=== PATIENT | female | born 1940 | race American Indian/Alaskan Native ===

== ENCOUNTER 2018-09-17 16:32 | Emergency (ER) | payer MEDICARE ==
--- NOTE | 2018-09-17 18:32 | Emergency Department Report ---
HPI - General Chief Complaint: Altered Mental Status Time Seen by Provider: 09/17/18 17:19 - HPI HPI: Room 23 The patient is an 78-year-old female presenting with a chief complaint of weakness. The patient states yesterday while seated became diffusely weak. Patient admits to nausea but denies vomiting. Patient denies headache, chest pain or abdominal pain. Patient denies history of fever. The patient admits to a fall last night while carrying a heavy object stating she landed on her buttocks. Patient denies loss of consciousness or head injury Location: Diffuse body Duration: [See above] Quality: Weakness Severity: Moderate Modifying factors: [see above] Context: [see above] Mode of transportation: [not driving] ED Past Medical Hx - Past Medical History Hx Hypertension: Yes Hx Heart Attack/AMI: Yes Hx Diabetes: Yes Additional medical history: TIA - Surgical History Additional Surgical History: stent x 2, hysterectomy - Family History Family history: no significant - Social History Smoking Status: Never Smoker Substance Use Type: None - Medications Home Medications: Home Medications Medication Instructions Recorded Confirmed Last Taken Type Aspirin EC [Aspirin Enteric Coated 81 mg PO QDAY 12/14/15 12/14/15 Unknown History TAB] AtorvaSTATin [Lipitor] 80 mg PO DAILY 12/14/15 12/14/15 Unknown History ISOSORBIDE MONOnitrate [Imdur ER] 30 mg PO DAILY 12/14/15 12/14/15 Unknown History Lisinopril [Zestril TAB] 40 mg PO QDAY 12/14/15 12/14/15 Unknown History Ticagrelor [Brilinta] 90 mg PO BID 12/14/15 12/14/15 Unknown History ED Review of Systems ROS: Stated complaint: HYPERTENSION Other details as noted in HPI Constitutional: weakness Eyes: denies: eye pain ENT: denies: throat pain Respiratory: no symptoms reported Cardiovascular: denies: chest pain Endocrine: no symptoms reported Gastrointestinal: denies: abdominal pain Genitourinary: denies: dysuria Musculoskeletal: denies: back pain Neurological: denies: headache Physical Exam - Physical Exam Vital Signs: Vital Signs 09/17/18 17:01 Temperature 98.3 F Pulse Rate 71 Respiratory 18 Rate Blood Pressure 194/104 O2 Sat by Pulse 98 Oximetry Physical Exam: GENERAL: The patient is well-developed well-nourished female lying on stretcher not appearing to be in acute distress. [] HEENT: Normocephalic. Atraumatic. Extraocular motions are intact. Patient has moist mucous membranes. NECK: Supple. Trachea midline CHEST/LUNGS: Clear to auscultation. There is no respiratory distress noted. HEART/CARDIOVASCULAR: Regular. There is no tachycardia. There is no gallop rub or murmur. ABDOMEN: Abdomen is soft, nontender. Patient has normal bowel sounds. There is no abdominal distention. SKIN: There is no rash. There is no edema. There is no diaphoresis. NEURO: The patient is awake, alert, and oriented. The patient is cooperative. The patient has no focal neurologic deficits. The patient has normal speech. Cranial nerves II through XII grossly intact, no drift MUSCULOSKELETAL: There is no evidence of acute injury. ED Course Vital Signs 09/17/18 17:01 Temperature 98.3 F Pulse Rate 71 Respiratory 18 Rate Blood Pressure 194/104 O2 Sat by Pulse 98 Oximetry ED Medical Decision Making - Lab Data Result diagrams: 09/17/18 18:27 09/17/18 18:27 Laboratory Tests 09/17/18 09/17/18 09/17/18 18:15 18:27 18:27 WBC 9.4 RBC 4.45 Hgb 13.3 Hct 38.0 MCV 85 MCH 30 MCHC 35 H RDW 15.1 Plt Count 391 Lymph % (Auto) 7.5 L [place] % (Auto) 6.7 Eos % (Auto) 0.0 Baso % (Auto) 1.1 Lymph # 0.7 L [place] # 0.6 Eos # 0.0 Baso # 0.1 Seg Neutrophils % 84.7 H Seg Neutrophils # 8.0 H PT 14.9 INR 1.10 APTT 23.9 L Sodium Potassium Chloride Carbon Dioxide Anion Gap BUN Creatinine Estimated GFR BUN/Creatinine Ratio Glucose Calcium Total Bilirubin AST ALT Alkaline Phosphatase Total Creatine Kinase CK-MB (CK-2) CK-MB (CK-2) Rel Index Troponin T NT-Pro-B Natriuret Pep Total Protein Albumin Albumin/Globulin Ratio Lipase TSH Free T4 Urine Color Yellow Urine Turbidity Cloudy Urine pH 6.0 Ur Specific [place] 1.025 Urine Protein 30 mg/dl Urine Glucose (UA) >=500 Urine Ketones 20 Urine Blood Sm Urine Nitrite Pos Urine Bilirubin Neg Urine Urobilinogen < 2.0 Ur Leukocyte Esterase Sm Urine WBC (Auto) 63.0 H Urine RBC (Auto) 3.0 U Epithel Cells (Auto) 11.0 Urine Bacteria (Auto) 1+ Urine WBC Clumps 2+ Urine Mucus Few 09/17/18 09/17/18 18:27 18:27 WBC RBC Hgb Hct MCV MCH MCHC RDW Plt Count Lymph % (Auto) [place] % (Auto) Eos % (Auto) Baso % (Auto) Lymph # [place] # Eos # Baso # Seg Neutrophils % Seg Neutrophils # PT INR APTT Sodium 140 Potassium 3.6 Chloride 98.6 Carbon Dioxide 23 Anion Gap 22 BUN 15 Creatinine 0.8 Estimated GFR > 60 BUN/Creatinine Ratio 19 Glucose 396 H Calcium 9.4 Total Bilirubin 0.50 AST 10 ALT 12 Alkaline Phosphatase 131 H Total Creatine Kinase 68 CK-MB (CK-2) 2.7 CK-MB (CK-2) Rel Index 3.9 Troponin T < 0.010 NT-Pro-B Natriuret Pep 88.55 Total Protein 7.2 Albumin 3.6 L Albumin/Globulin Ratio 1.0 Lipase 16 TSH 0.865 Free T4 1.03 Urine Color Urine Turbidity Urine pH Ur Specific [place] Urine Protein Urine Glucose (UA) Urine Ketones Urine Blood Urine Nitrite Urine Bilirubin Urine Urobilinogen Ur Leukocyte Esterase Urine WBC (Auto) Urine RBC (Auto) U Epithel Cells (Auto) Urine Bacteria (Auto) Urine WBC Clumps Urine Mucus - EKG Data -: EKG Interpreted by Ut EKG shows normal: sinus rhythm Rate: normal - EKG Data When compared to previous EKG there are: previous EKG unavailable Interpretation: other (no ischemic changes seen) - Radiology Data Radiology results: report reviewed (CT Head), image reviewed (CT Head) [address] [address] Cat Scan Report Signed Patient: JULIENNE GARCIA MR#: [id number] 7 : 1940 Acct:[id number] Age/Sex: 78 / F ADM Date: 09/17/18 Loc: ED Attending Dr: Ordering Physician: REANNA BURNS MD Date of Service: 09/17/18 Procedure(s): CT head/brain wo con Accession Number(s): [id number] cc: REANNA BURNS MD PROCEDURE: CT head without contrast. TECHNIQUE: Computerized tomography of the head was performed without contrast material. CT DOSE LENGTH PRODUCT: 805.4 mGycm HISTORY: Weakness, nausea. COMPARISONS: None. FINDINGS: The ventricles are normal in size. There is a fairly large area of diminished attenuation involving the left cerebellar hemisphere. This is not sharply defined. It is consistent with a subacute stroke. Clinical correlation is recommended. This could also be confirmed by MRI scanning. There are no mass lesions. There is no intracranial hemorrhage. The calvarium appears intact. The mastoid air cells and paranasal sinuses are clear as far as visualized. IMPRESSION: Probable large subacute stroke in the left cerebellar hemisphere. This document is electronically signed by Manpreet Aranda MD., Sep 17 2018 09:41:31 PM ET Transcribed By: MRM Dictated By: MANPREET ARANDA MD Electronically Authenticated By: MANPREET ARANDA MD Signed Date/Time: 09/17/182042 DD/ 99 TD/TT: 09/17/182004 - Differential Diagnosis symptomatic anemia, hyponatremia, dehydration, CHF, UTI, ACS Critical care attestation.: If time is entered above; I have spent that time in minutes in the direct care of this critically ill patient, excluding procedure time. ED Disposition Clinical Impression: CVA (cerebral vascular accident), Hypertensive urgency Disposition: OP ADMIT IP TO THIS HOSP Is pt being admited?: Yes Does the pt Need Aspirin: Yes Condition: Stable Time of Disposition: 20:48 (hospitalist paged (Chiquita))
[2018-09-17] MEDS ORDERED: ZOFRAN IV ONE (18:35)
[2018-09-17 18:38] LABS: Bacteria,Urine 1+ /HPF (Negative); Bilirubin,Urine NEG (Negative); Blood,Urine SM (Negative); Color,Urine Yellow (Yellow); Mucus,Urine FEW /HPF; Urobilinogen,Urine < 2.0 mg/dL (<2.0)
[2018-09-17 18:42] LABS: Basophils # (Auto) 0.1 K/mm3 (0.0-0.1); Basophils % (Auto) 1.1 % (0.0-1.8); Hemoglobin 13.3 gm/dl (10.1-14.3); Lymphocytes # (Auto) 0.7 K/mm3 (1.2-5.4); Lymphocytes % (Auto) 7.5 % (13.4-35.0); Mean Corpuscular HGB Conc 35 % (30-34); Mean Corpuscular Volume 85 fl (79-97); Monocytes # (Auto) 0.6 K/mm3 (0.0-0.8); Monocytes % (Auto) 6.7 % (0.0-7.3); Platelet Count 391 K/mm3 (140-440); Red Blood Count 4.45 M/mm3 (3.65-5.03); Red Cell Distribution Width 15.1 % (13.2-15.2)
[2018-09-17 18:52] LABS: INR 1.1 (0.87-1.13); Partial Thromboplastin Time 23.9 Sec. (24.2-36.6)
[2018-09-17 19:26] LABS: Free T4 (Free Thyroxine) 1.03 ng/dL (0.76-1.46)
[2018-09-17 19:49] LABS: Creatine Kinase MB 2.7 ng/mL (0.0-4.0)
[2018-09-17 19:53] LABS: Alanine Aminotransferase 12 units/L (7-56); Albumin 3.6 g/dL (3.9-5); BUN/Creatinine Ratio 19; Blood Urea Nitrogen 15 mg/dL (7-17); Calcium 9.4 mg/dL (8.4-10.2); Hemolysis Index 4
[2018-09-17] MEDS ORDERED: CATAPRES PO ONE (19:57)
[2018-09-17] MEDS ORDERED: LEVAQUIN PO ONE (20:26)
--- NOTE | 2018-09-17 20:43 | Cat Scan Report ---
PROCEDURE: CT head without contrast. TECHNIQUE: Computerized tomography of the head was performed without contrast material. CT DOSE LENGTH PRODUCT: 805.4 mGycm HISTORY: Weakness, nausea. COMPARISONS: None. FINDINGS: The ventricles are normal in size. There is a fairly large area of diminished attenuation involving t he left cerebellar hemisphere. This is not sharply defined. It is consistent with a subacute stroke. Clinical correlation is recommended. This could also be confirmed by MRI scanning. There are no mass lesions. There is no intracranial hemorrhage. The calvarium appears intact. The mastoid air cells and paranasal sinuses are clear as far as visualized. IMPRESSION: Probable large subacute stroke in the left cerebellar hemisphere. This document is electronically signed by Manpreet Silverman MD., Sep 17 2018 09:41:31 PM ET
[2018-09-17] MEDS ORDERED: ASPIRIN PO ONE (20:49)
--- NOTE | 2018-09-17 21:06 | History and Physical Report ---
Medications and Allergies Allergies Allergy/AdvReac Type Severity Reaction Status Date / Time No Known Allergies Allergy Verified 09/17/18 17:01 Home Medications Medication Instructions Recorded Confirmed Last Taken Type Aspirin EC [Aspirin Enteric Coated 81 mg PO QDAY 12/14/15 12/14/15 Unknown His tory TAB] AtorvaSTATin [Lipitor] 80 mg PO DAILY 12/14/15 12/14/15 Unknown History ISOSORBIDE MONOnitrate [Imdur ER] 30 mg PO DAILY 12/14/15 12/14/15 Unknown History Lisinopril [Zestril TAB] 40 mg PO QDAY 12/14/15 12/14/15 Unknown History Ticagrelor [Brilinta] 90 mg PO BID 12/14/15 12/14/15 Unknown History Exam - Constitutional Vitals: Temp Pulse Resp BP Pulse Ox 98.3 F 79 20 178/87 98 09/17/18 17:01 09/17/18 20:44 09/17/18 20:44 09/17/18 20:44 09/17/18 19:50 Results - Labs CBC & Chem 7: 09/17/18 18:27 09/17/18 18:27 Labs: Laboratory Last Values WBC 9.4 K/mm3 (4.5-11.0) 09/17/18 18:27 RBC 4.45 M/mm3 (3.65-5.03) 09/17/18 18:27 Hgb 13.3 gm/dl (10.1-14.3) 09/17/18 18:27 Hct 38.0 % (30.3-42.9) 09/17/18 18:27 MCV 85 fl (79-97) 09/17/18 18:27 MCH 30 pg (28-32) 09/17/18 18:27 MCHC 35 % (30-34) H 09/17/18 18:27 RDW 15.1 % (13.2-15.2) 09/17/18 18:27 Plt Count 391 K/mm3 (140-440) 09/17/18 18:27 Lymph % (Auto) 7.5 % (13.4-35.0) L 09/17/18 18:27 [place] % (Auto) 6.7 % (0.0-7.3) 09/17/18 18:27 Eos % (Auto) 0.0 % (0.0-4.3) 09/17/18 18:27 Baso % (Auto) 1.1 % (0.0-1.8) 09/17/18 18:27 Lymph # 0.7 K/mm3 (1.2-5.4) L 09/17/18 18:27 [place] # 0.6 K/mm3 (0.0-0.8) 09/17/18 18: Eos # 0.0 K/mm3 (0.0-0.4) 09/17/18 18: Baso # 0.1 K/mm3 (0.0-0.1) 09/17/18 18: Seg Neutrophils % 84.7 % (40.0-70.0) H 09/17/18 18: Seg Neutrophils # 8.0 K/mm3 (1.8-7.7) H 09/17/18 18: PT 14.9 Sec. (12.2-14.9) 09/17/18 18: INR 1.10 (0.87-1.13) 09/17/18 18: APTT 23.9 Sec. (24.2-36.6) L 09/17/18 18:27 Sodium 140 mmol/L (137-145) 09/17/18 18: Potassium 3.6 mmol/L (3.6-5.0) 09/17/18 18: Chloride 98.6 mmol/L (98-107) 09/17/18 18: Carbon Dioxide 23 mmol/L (22-30) 09/17/18 18:27 22 mmol/L 09/17/18 18:27 BUN 15 mg/dL (7-17) 09/17/18 18:27 0.8 mg/dL (0.7-1.2) 09/17/18 18:27 Estimated GFR > 60 ml/min 09/17/18 18:27 19 % 09/17/18 18:27 Glucose 396 mg/dL (65-100) H 09/17/18 18:27 Calcium 9.4 mg/dL (8.4-10.2) 09/17/18 18:27 0.50 mg/dL (0.1-1.2) 09/17/18 18:27 AST 10 units/L (5-40) 09/17/18 18:27 ALT 12 units/L (7-56) 09/17/18 18:27 131 units/L (35-129) H 09/17/18 18:27 68 units/L (30-135) 09/17/18 18:27 CK-MB (CK-2) 2.7 ng/mL (0.0-4.0) 09/17/18 18:27 CK-MB (CK-2) Rel Index 3.9 (0-4) 09/17/18 18:27 < 0.010 ng/mL (0.00-0.029) 09/17/18 18: NT-Pro-B Natriuret Pep 88.55 pg/mL (0-900) 09/17/18 18:27 7.2 g/dL (6.3-8.2) 09/17/18 18:27 3.6 g/dL (3.9-5) L 09/17/18 18:27 1.0 % 09/17/18 18:27 16 units/L (13-60) 09/17/18 18:27 TSH 0.865 mlU/mL (0.270-4.200) 09/17/18 18:27 Free T4 1.03 ng/dL (0.76-1.46) 09/17/18 18:27 Yellow (Yellow) 09/17/18 18:15 Cloudy (Clear) 09/17/18 18:15 6.0 (5.0-7.0) 09/17/18 18:15 Ur Specific [place] 1.025 (1.003-1.030) 09/17/18 18:15 30 mg/dl mg/dL (Negative) 09/17/18 18:15 >=500 mg/dL (Negative) 09/17/18 18:15 20 mg/dL (Negative) 09/17/18 18:15 Sm (Negative) 09/17/18 18:15 Pos (Negative) 09/17/18 18:15 Neg (Negative) 09/17/18 18:15 < 2.0 mg/dL (<2.0) 09/17/18 18:15 Ur Leukocyte Esterase Sm (Negative) 09/17/18 18:15 63.0 /HPF (0.0-6.0) H 09/17/18 18:15 3.0 /HPF (0.0-6.0) 09/17/18 18:15 U Epithel Cells (Auto) 11.0 /HPF (0-13.0) 09/17/18 18:15 1+ /HPF (Negative) 09/17/18 18:15 2+ /HPF 09/17/18 18:15 Few /HPF 09/17/18 18:15
[2018-09-17] MEDS ORDERED: SODIUM CHLORIDE FLUSH SYRINGE 10 ML IV PRN ×2 (21:07)
[2018-09-17] MEDS ORDERED: ZOFRAN IV PRN ×2 (21:07)
[2018-09-17] MEDS ORDERED: MILK OF MAGNESIA PO PRN (21:07)
[2018-09-17] MEDS ORDERED: PHENERGAN PR PRN (21:07)
[2018-09-17] MEDS ORDERED: DULCOLAX PR PRN (21:07)
[2018-09-17] MEDS ORDERED: SENOKOT PO PRN (21:07)
[2018-09-17] MEDS ORDERED: REGLAN PO PRN (21:07)
[2018-09-17] MEDS ORDERED: TYLENOL PO PRN ×2 (21:07)
[2018-09-17] MEDS ORDERED: PEPCID IV SCH (22:00)
[2018-09-17] MEDS ORDERED: NACL 0.9% 1000 ML 1,000 ML IV SCH (22:00)
[2018-09-17] MEDS ORDERED: SODIUM CHLORIDE FLUSH SYRINGE 10 ML IV SCH (22:00)
[2018-09-17] MEDS ORDERED: ZOFRAN ONE (22:47)
[2018-09-17] MEDS ORDERED: PEPCID IV ONE (22:47)
[2018-09-17 22:55] VITALS: BP 187/73
[2018-09-18] MEDS ORDERED: ASPIRIN PO SCH (10:00)
== END 2018-09-17 23:34 | disposition admitted as inpatient to this hospital (09) ==
LOC: ED 16:32 → UNDOADMIN 21:07 → 4A 21:07 → ED 23:34
DX: I63.9 Cerebral infarction, unspecified (principal); I16.0 Hypertensive urgency; I10 Essential (primary) hypertension; I25.2 Old myocardial infarction; E11.9 Type 2 diabetes mellitus without complications; Z90.710 Acquired absence of both cervix and uterus
CPT/HCPCS: 36415; 70450; 80053; 81001; 82550; 82553; 83690; 83880; 84439; 84443; 84484; 85025; 85610; 85730; 87076; 87086; 87186; 93005; 93010; 96374; 96375; 96376; 99285; J2405

== ENCOUNTER 2019-02-25 11:43 | Emergency (ER) | payer MEDICARE ==
--- NOTE | 2019-02-25 14:10 | Event Note ---
ED Screening Note ED Screening Note: HPI: Family noticed right facial droop and dysarthria today. Last seen normal yesterday. This initial assessment/diagnostic orders/clinical plan/treatment(s) is/are subject to change based on patients health status, clinical progression and re- assessment by fellow clinical providers in the ED. Further treatment and workup at subsequent clinical providers discretion. Patient/guardian urged not to elope from the ED as their condition may be serious if not clinically assessed and managed. Initial orders include: laboratory and radiological.
--- NOTE | 2019-02-25 14:17 | XRay Report ---
CHEST 1 VIEW 02/25/2019 1:49 PM INDICATION / CLINICAL INFORMATION: tachycardia. COMPARISON: Chest x-ray 12/14/2015 FINDINGS: SUPPORT DEVICES: None. HEART / MEDIASTINUM: No significant abnormality. LUNGS / PLEURA: No significant pulmonary or pleural abnormality. No pneumothorax. ADDITIONAL FINDINGS: No significant additional findings. IMPRESSION: 1. No acute findings. Signer Name: Pascual Lamar MD Signed: 02/25/2019 2:13 PM Workstation Name: [id number]
[2019-02-25 14:35] LABS: Basophils # (Auto) 0.1 K/mm3 (0.0-0.1); Basophils % (Auto) 2.4 % (0.0-1.8); Eosinophils # (Auto) 0.1 K/mm3 (0.0-0.4); Eosinophils % (Auto) 1.4 % (0.0-4.3); Hematocrit 37.2 % (30.3-42.9); Hemoglobin 12.1 gm/dl (10.1-14.3); Lymphocytes # (Auto) 1.5 K/mm3 (1.2-5.4); Lymphocytes % (Auto) 27.8 % (13.4-35.0); Mean Corpuscular HGB Conc 32 % (30-34); Mean Corpuscular Volume 87 fl (79-97); Monocytes # (Auto) 0.4 K/mm3 (0.0-0.8); Monocytes % (Auto) 6.9 % (0.0-7.3); Platelet Count 287 K/mm3 (140-440); Red Blood Count 4.28 M/mm3 (3.65-5.03)
--- NOTE | 2019-02-25 14:40 | Emergency Department Report ---
ED Neuro Deficit HPI - General Chief Complaint: Neuro Symptoms/Deficit Stated Complaint: WEAKNESS Time Seen by Provider: 02/25/19 12:42 Source: patient Mode of arrival: Stretcher Limitations: No Limitations - History of Present Illness Initial Comments: FEMALE who is here without family members. She arrived prior to my arrival. It was determined that she was outside stroke window. As far as I can ascertain she woke up with a right facial paresis. She has a history of prior stroke apparently, diabetes and hypertension. She tells me that she fell twice today. She is uncertain about the circumstances. I cannot exclude syncope. There is no family informant at this point. Patient was slightly confused as to the month. However she is lucid and otherwise has fairly good recall. -: During the night Location: right face Presenting Symptoms: Present: Weak/Paralyzed One Side History of same: No Place: home Severity: moderate Improves With: none Worsens With: none On Anticoagulants: No Associated Symptoms: denies other symptoms - Related Data Home Medications: Home Medications Medication Instructions Recorded Confirmed Last Taken Aspirin EC [Aspirin Enteric Coated 81 mg PO QDAY 12/14/15 12/14/15 Unknown TAB] AtorvaSTATin [Lipitor] 80 mg PO DAILY 12/14/15 12/14/15 Unknown ISOSORBIDE MONOnitrate [Imdur ER] 30 mg PO DAILY 12/14/15 12/14/15 Unknown Lisinopril [Zestril TAB] 40 mg PO QDAY 12/14/15 12/14/15 Unknown Ticagrelor [Brilinta] 90 mg PO BID 12/14/15 12/14/15 Unknown Allergies/Adverse Reactions: Allergies Allergy/AdvReac Type Severity Reaction Status Date / Time No Known Allergies Allergy Verified 09/17/18 17:01 ED Review of Systems ROS: Stated complaint: WEAKNESS Other details as noted in HPI Constitutional: denies: chills, fever Eyes: denies: eye pain, eye discharge, vision change ENT: denies: ear pain, throat pain Respiratory: denies: cough, shortness of breath, wheezing Cardiovascular: denies: chest pain, palpitations Endocrine: no symptoms reported Gastrointestinal: denies: abdominal pain, nausea, diarrhea Genitourinary: denies: urgency, dysuria, discharge Musculoskeletal: denies: back pain, joint swelling, arthralgia Skin: denies: rash, lesions Neurological: as per HPI, weakness (facial denies extremity). denies: headache, paresthesias Psychiatric: denies: anxiety, depression Hematological/Lymphatic: denies: easy bleeding, easy bruising ED Past Medical Hx - Past Medical History Previous Medical History?: Yes Hx Hypertension: Yes Hx Heart Attack/AMI: Yes Hx Diabetes: Yes Additional medical history: TIA - Surgical History Past Surgical History?: Yes Additional Surgical History: stent x 2, hysterectomy - Social History Smoking Status: Never Smoker Substance Use Type: None - Medications Home Medications: Home Medications Medication Instructions Recorded Confirmed Last Taken Type Aspirin EC [Aspirin Enteric Coated 81 mg PO QDAY 12/14/15 12/14/15 Unknown History TAB] AtorvaSTATin [Lipitor] 80 mg PO DAILY 12/14/15 12/14/15 Unknown History ISOSORBIDE MONOnitrate [Imdur ER] 30 mg PO DAILY 12/14/15 12/14/15 Unknown History Lisinopril [Zestril TAB] 40 mg PO QDAY 12/14/15 12/14/15 Unknown History Ticagrelor [Brilinta] 90 mg PO BID 12/14/15 12/14/15 Unknown History ED Neuro Physical Exam - General Limitations: No Limitations General appearance: alert, in no apparent distress Suspected Stroke: Yes - Head Head exam: Present: atraumatic, normocephalic - Eye Eye exam: Present: normal appearance, other (no forehead asymmetry) - ENT ENT exam: Present: mucous membranes moist, other (partial facial paresis) - Neck Neck exam: Present: normal inspection. Absent: tenderness, meningismus - Respiratory Respiratory exam: Present: normal lung sounds bilaterally. Absent: respiratory distress - Cardiovascular Cardiovascular Exam: Present: regular rate, normal rhythm. Absent: systolic murmur, diastolic murmur, rubs, gallop - GI/Abdominal GI/Abdominal exam: Present: soft, normal bowel sounds. Absent: distended, tenderness, guarding, rebound, rigid - Extremities Exam Extremities exam: Present: normal inspection, normal capillary refill. Absent: calf tenderness - Back Exam Back exam: Present: normal inspection. Absent: paraspinal tenderness, vertebral tenderness - Neurological Exam Neurological exam: Present: alert, oriented X3, motor sensory deficit. Absent: CN II-XII intact - NIHSS Assessment Interval: Baseline 1a. Level of Consciousness: alert/keenly responsive 1b. LOC Questions: answers 1 question correctly 1c. LOC Commands: performs tasks correctly 2. Best Gaze: normal 3. Visual: no visual loss 4. Facial Palsy: partial paralysis 5b. Motor Arm Right: no drift 5a. Motor Arm Left: no drift 6a. Motor Leg Left: no drift 6b. Motor Leg Right: no drift 7. Limb Ataxia: absent 8. Sensory: normal 9. Best Language: no aphasia 10. Dysarthria: normal 11. Extinction/Inattention: no abnormality (the patient has slight weakness of the orbicularis oculi on the right, however there is no asymmetry of the frontalis) Total Score: 3 Stroke Severity: Minor Stroke - Psychiatric Psychiatric exam: Present: normal affect, normal mood - Skin Skin exam: Present: warm, dry, intact, normal color. Absent: rash ED Course Vital Signs 02/25/19 02/25/19 02/25/19 11:56 12:00 12:16 Temperature 97.9 F Pulse Rate 70 71 Respiratory 17 15 Rate Blood Pressure 150/65 O2 Sat by Pulse 98 95 Oximetry 02/25/19 02/25/19 02/25/19 12:30 13:00 14:00 Temperature Pulse Rate 67 65 Respiratory 15 17 9 L Rate Blood Pressure 150/65 152/56 162/55 O2 Sat by Pulse 95 94 98 Oximetry - Reevaluation(s) Reevaluation #1: Patient was given aspirin and insulin. She has been stable under observation at this time. I spoke with [facility] physician who stated that they would pick the patient up for transport to [facility] services of Dr. MCMANUS. 02/25/19 16:24 - Lab Data Result diagrams: 02/25/19 14:00 02/25/19 14:00 Lab Results 02/25/19 02/25/19 02/25/19 Range/Units 14:00 14:00 14:00 WBC 5.4 (4.5-11.0) K/mm3 RBC 4.28 (3.65-5.03) M/mm3 Hgb 12.1 (10.1-14.3) gm/dl Hct 37.2 (30.3-42.9) % MCV 87 (79-97) fl MCH 28 (28-32) pg MCHC 32 (30-34) % RDW 15.0 (13.2-15.2) % Plt Count 287 (140-440) K/mm3 Lymph % (Auto) 27.8 (13.4-35.0) % [place] % (Auto) 6.9 (0.0-7.3) % Eos % (Auto) 1.4 (0.0-4.3) % Baso % (Auto) 2.4 H (0.0-1.8) % Lymph # 1.5 (1.2-5.4) K/mm3 [place] # 0.4 (0.0-0.8) K/mm3 Eos # 0.1 (0.0-0.4) K/mm3 Baso # 0.1 (0.0-0.1) K/mm3 Seg Neutrophils % 61.5 (40.0-70.0) % Seg Neutrophils # 3.3 (1.8-7.7) K/mm3 PT 12.8 (12.2-14.9) Sec. INR 0.97 (0.87-1.13) APTT 22.2 L (24.2-36.6) Sec. Sodium 138 (137-145) mmol/L Potassium 4.2 (3.6-5.0) mmol/L Chloride 102.5 (98-107) mmol/L Carbon Dioxide 22 (22-30) mmol/L Anion Gap 18 mmol/L BUN 11 (7-17) mg/dL Creatinine 0.7 (0.7-1.2) mg/dL Estimated GFR > 60 ml/min BUN/Creatinine Ratio 16 % Glucose 345 H (65-100) mg/dL Calcium 9.3 (8.4-10.2) mg/dL Troponin T < 0.010 (0.00-0.029) ng/mL Urine Color (Yellow) Urine Turbidity (Clear) Urine pH (5.0-7.0) Ur Specific [place] (1.003-1.030) Urine Protein (Negative) mg/dL Urine Glucose (UA) (Negative) mg/dL Urine Ketones (Negative) mg/dL Urine Blood (Negative) Urine Nitrite (Negative) Urine Bilirubin (Negative) Urine Urobilinogen (<2.0) mg/dL Ur Leukocyte Esterase (Negative) Urine WBC (Auto) (0.0-6.0) /HPF Urine RBC (Auto) (0.0-6.0) /HPF U Epithel Cells (Auto) (0-13.0) /HPF Urine Mucus /HPF 02/25/19 Range/Units 14:07 WBC (4.5-11.0) K/mm3 RBC (3.65-5.03) M/mm3 Hgb (10.1-14.3) gm/dl Hct (30.3-42.9) % MCV (79-97) fl MCH (28-32) pg MCHC (30-34) % RDW (13.2-15.2) % Plt Count (140-440) K/mm3 Lymph % (Auto) (13.4-35.0) % [place] % (Auto) (0.0-7.3) % Eos % (Auto) (0.0-4.3) % Baso % (Auto) (0.0-1.8) % Lymph # (1.2-5.4) K/mm3 [place] # (0.0-0.8) K/mm3 Eos # (0.0-0.4) K/mm3 Baso # (0.0-0.1) K/mm3 Seg Neutrophils % (40.0-70.0) % Seg Neutrophils # (1.8-7.7) K/mm3 PT (12.2-14.9) Sec. INR (0.87-1.13) APTT (24.2-36.6) Sec. Sodium (137-145) mmol/L Potassium (3.6-5.0) mmol/L Chloride (98-107) mmol/L Carbon Dioxide (22-30) mmol/L Anion Gap mmol/L BUN (7-17) mg/dL Creatinine (0.7-1.2) mg/dL Estimated GFR ml/min BUN/Creatinine Ratio % Glucose (65-100) mg/dL Calcium (8.4-10.2) mg/dL Troponin T (0.00-0.029) ng/mL Urine Color Yellow (Yellow) Urine Turbidity Clear (Clear) Urine pH 6.0 (5.0-7.0) Ur Specific [place] 1.026 (1.003-1.030) Urine Protein <15 mg/dl (Negative) mg/dL Urine Glucose (UA) >=500 (Negative) mg/dL Urine Ketones Neg (Negative) mg/dL Urine Blood Neg (Negative) Urine Nitrite Neg (Negative) Urine Bilirubin Neg (Negative) Urine Urobilinogen < 2.0 (<2.0) mg/dL Ur Leukocyte Esterase Neg (Negative) Urine WBC (Auto) 1.0 (0.0-6.0) /HPF Urine RBC (Auto) 2.0 (0.0-6.0) /HPF U Epithel Cells (Auto) 4.0 (0-13.0) /HPF Urine Mucus Few /HPF Laboratory Results - last 24 hr 02/25/19 14:00 WBC 5.4 RBC 4.28 Hgb 12.1 Hct 37.2 MCV 87 MCH 28 MCHC 32 RDW 15.0 Plt Count 287 Lymph % (Auto) 27.8 [place] % (Auto) 6.9 Eos % (Auto) 1.4 Baso % (Auto) 2.4 H Lymph # 1.5 [place] # 0.4 Eos # 0.1 Baso # 0.1 Seg Neutrophils % 61.5 Seg Neutrophils # 3.3 - EKG Data -: EKG Interpreted by Mo EKG shows normal: sinus rhythm, axis, intervals, QRS complexes, ST-T waves Rate: normal Interpretation: no acute changes, other (first degree AV block) - Radiology Data Parenchyma: No acute intracranial hemorrhage or parenchymal abnormality. Mild diffuse volume loss and mild nonspecific chronic white matter changes are stable. Chronic infarct in the inferior left cerebellum measures up to 3.3 x 2.4 cm. Ventricles: Ventricles are normal in size and appear symmetric. Bones: No acute osseous abnormality. Sinuses: Sinuses and mastoid air cells are clear. Soft tissues: Soft tissues including the orbits appear normal. IMPRESSION: No acute abnormality. Volume loss and chronic white matter changes. Chronic left cerebellar infarct. Chest x-ray no acute process - Thrombolytic Inclusion/Exclusion Thrombolytic Exclusion Criteria: Symptom Onset > 3 Hours Critical care attestation.: If time is entered above; I have spent that time in minutes in the direct care of this critically ill patient, excluding procedure time. 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
[2019-02-25 14:45] LABS: INR 0.97 (0.87-1.13)
[2019-02-25 14:45] LABS: Bilirubin,Urine NEG (Negative); Blood,Urine NEG (Negative); Color,Urine Yellow (Yellow); Mucus,Urine FEW /HPF; Protein,Urine <15 mg/dL mg/dL (Negative); Urobilinogen,Urine < 2.0 mg/dL (<2.0)
[2019-02-25 14:50] LABS: Partial Thromboplastin Time 22.2 Sec. (24.2-36.6)
[2019-02-25 14:53] LABS: BUN/Creatinine Ratio 16; Blood Urea Nitrogen 11 mg/dL (7-17); Calcium 9.3 mg/dL (8.4-10.2); Hemolysis Index 45
--- NOTE | 2019-02-25 15:31 | Cat Scan Report ---
CT HEAD WITHOUT CONTRAST INDICATION : Alterted Mental Status. TECHNIQUE: Axial imaging performed from the skull apex through the skull base without the use of con trast. Sagittal and coronal reformatted images. All CT scans at this location are performed using C T dose reduction for ALARA by means of automated exposure control. COMPARISON: 09/17/2018 FINDINGS: Parenchyma: No acute intracranial hemorrhage or parenchymal abnormality. Mild diffuse volume loss an d mild nonspecific chronic white matter changes are stable. Chronic infarct in the inferior left cere bellum measures up to 3.3 x 2.4 cm. Ventricles: Ventricles are normal in size and appear symmetric. Bones: No acute osseous abnormality. Sinuses: Sinuses and mastoid air cells are clear. Soft tissues: Soft tissues including the orbits appear normal. IMPRESSION: No acute abnormality. Volume loss and chronic white matter changes. Chronic left cerebell ar infarct. Signer Name: Tevin Lou Jr, MD Signed: 02/25/2019 3:26 PM Workstation Name: [id number]
[2019-02-25] MEDS ORDERED: ASPIRIN 325 MG TAB PO ONE (16:06)
[2019-02-25] MEDS ORDERED: INSULIN NPH/REGULAR 70/30 INJ SUB-Q ONE (16:30)
[2019-02-25 18:20] LABS: Alanine Aminotransferase 20 units/L (7-56)
[2019-02-25 18:40] LABS: Bilirubin,Direct < 0.2 mg/dL (0-0.2)
[2019-02-25 19:16] VITALS: BP 151/69
== END 2019-02-25 19:28 | disposition other institution (70) ==
LOC: ED 11:43
DX: I63.9 Cerebral infarction, unspecified (principal); E11.65 Type 2 diabetes mellitus with hyperglycemia; I10 Essential (primary) hypertension; Z79.82 Long term (current) use of aspirin; Z79.899 Other long term (current) drug therapy; Z90.710 Acquired absence of both cervix and uterus
CPT/HCPCS: 36415; 70450; 71045; 80048; 80076; 81001; 82962; 83880; 84484; 85025; 85610; 85730; 93005; 93010; 96372; 99285; J1815